=== PATIENT | male | born 1955 | race Caucasian/White ===

== ENCOUNTER 2018-03-26 10:06 | Emergency (ER) | payer OTHER ==
[~2018-03-26] VITALS: Ht 177.8 cm; Wt 77.1 kg
--- NOTE | ~2018-03-26 | CON ---
[address] [address] CONSULTATION Name: ENOCH LAM Room: [facility]#: [id number] Admission: 03/26/18 Attend Phys: Discharge: 03/26/18 Date of : 51 Report #: [id number] THIS REPORT FOR: //name// CC: Bernabe Stokes DATE OF SERVICE: 03/26/2018 HISTORY OF PRESENT ILLNESS: The patient with past medical history significant for hypertension who is presenting with inability to swallow solids or liquids since Wednesday night. The patient reports that he had consumed a large piece of steak along with some potatoes and peas that night and since then has felt that it has been lodged in his esophagus. The patient reports discomfort and pain while attempting to swallow and he has a prior history of gastroesophageal reflux disease. The patient denies any shortness of breath. He is unable to swallow his saliva, liquids or even pills. The patient denies similar episodes in the past. PAST MEDICAL HISTORY: Hypertension. PAST SURGICAL HISTORY: None significant. FAMILY HISTORY: There is no family history of colorectal or esophageal cancer. SOCIAL HISTORY: The patient denies alcohol use. REVIEW OF SYSTEMS: A comprehensive 10-point review of systems is negative except for what is mentioned in the HPI. PHYSICAL EXAMINATION: GENERAL: The patient is alert, awake, oriented x 3. HEENT: Pupils are equal, round, reactive to light and accommodation. Mucous membranes are moist. There is no congestion. LUNGS: Clear to auscultation bilaterally. CARDIOVASCULAR: Rate and rhythm regular. S1, S2 present. ABDOMEN: Soft. There is no distention, guarding or rigidity. EXTREMITIES: Warm, well perfused. There is no edema. SKIN: Warm and dry. LABORATORY DATA: Hemoglobin 16.8, hematocrit 49.0, WBC count 13.2, platelet count 209. Sodium 146, potassium 3.6, chloride 107, bicarbonate 27, BUN 31, creatinine 1.2, total bilirubin 1.7. INR 1. ASSESSMENT AND PLAN: This is a pleasant 62-year-old male with a history of gastroesophageal reflux disease and hypertension, who was presenting with a food bolus impaction since last Wednesday. The patient unable [place] [address] CONSULTATION Name: LAMENOCH Ric Room: [facility]#: [id number] Admission: 03/26/18 Attend Phys: Discharge: 03/26/18 Date of : 51 Report #: [id number] liquids including saliva or water. The patient was given glucagon in the ER and this does not appear to have caused any improvement in his symptoms. We will have to proceed with upper endoscopy and extraction of the food bolus. Further recommendations will be based on the EGD. Thank you for this consult. By: [id number] Martínez MD /deborah
--- NOTE | ~2018-03-26 | PROC ---
[address] [address] PROCEDURE REPORT Name: ENOCH LAM [facility]#: [id number] Admission: 03/26/18 Attend Phys: Discharge: 03/26/18 Date of : 51 Report #: [id number] THIS REPORT FOR: //name// For GI report, please see the provation report in Per[employer] 7 content. By: 1231Medical Records Staff CHARLES /HIRAL
[2018-03-26] MEDS ORDERED: CARDURA XL4 MG PO (10:16)
[2018-03-26] MEDS ORDERED: BYSTOLIC 5 MG5 M1 PO (10:17)
[2018-03-26] MEDS ORDERED: ASPIR 8181 MG PO (10:17)
[2018-03-26 10:33] LABS: HEMOGLOBIN 16.8 gm/dL (14.0-18.0); MCH 30.8 pg (26.0-34.0); MCHC 34.2 g/dL (28.0-37.0); MCV 90.1 fL (80.0-100.0); MPV 8.9 fl. (7.2-11.1); NUCLEATED RBCS 0 /100WBC; PLATELET COUNT* 209 thou/uL (150-400); RBC 5.44 mil/uL (4.50-6.00); RDW-CV 13.3 % (10.5-14.5); WBC 13.2 thou/uL (4.0-11.0)
[2018-03-26 10:48] LABS: CALCIUM 9.2 mg/dL (8.5-10.1); CREATININE 1.2 mg/dL (0.6-1.3); POTASSIUM 3.6 mmol/L (3.5-5.1)
[2018-03-26 10:52] LABS: ALBUMIN 4.3 g/dL (3.4-5.0); TOTAL BILIRUBIN 1.7 mg/dL (<0.1-1.0); TOTAL PROTEIN 8.1 g/dL (6.4-8.2)
[2018-03-26 10:56] LABS: ABSOLUTE EOSINOPHILS 0.1 thou/uL (0.0-0.7); ABSOLUTE LYMPHOCYTES 1.2 thou/uL (0.8-5.3); ABSOLUTE MONOCYTES 0.7 thou/uL (0.0-1.2); ABSOLUTE NEUTROPHILS 11.2 thou/uL (1.6-8.1); PLATELET ESTIMATE ADEQUATE
[2018-03-26 11:03] LABS: APTT 26.4 Seconds (25.0-31.3); PROTIME 10.7 Seconds (9.20-11.50)
[2018-03-26 13:36] VITALS: BP 179/98
--- NOTE | 2018-03-27 13:37 | EKG ---
[place] [address] ELECTROCARDIOGRAM REPORT Name: ENOCH LAM Room: [facility]#: [id number] Admission: 03/26/18 Attend Phys: Discharge: 03/26/18 Date of : 51 Report #: [id number] THIS REPORT FOR: //name// [facility] ED Test Date: 2018-03-26 Test Time: 10:30:53 Pat Name: ENOCH LAM Department: Room: Gender: Correspondent: Rin OGDEN : 1955 Requested By: Vickey Jerome Order Number: [id number] MD: Nitin Thornton Measurements Intervals [place] Rate: 63 P: 76 WV: 166 QRS: -64 QRSD: 155 T: 112 QT: 464 QTc: 476 Interpretive Statements Sinus rhythm Probable left atrial enlargement LBBB Baseline wander in lead(s) V1 No previous ECG available for comparison Electronically Signed On 03-27-2018 13:37:05 [employer]IOR PRODUCT [employer]NALY[employer] by Nitin Thornton [email or web address] <ELECTRONICALLY SIGNED> By: Nitin Thornton MD, [facility] 03/27/18 1337 1030 1030 Nitin Thornton MD, FACC /EPI
--- NOTE | 2018-03-30 14:06 | PATH ---
[address] [address] PATHOLOGY RPT PROCEDURE Name: JARON LAM Room: [facility] Kulwant#: [id number] Admission: 03/26/18 Date of : 51 Discharge: 03/26/18 Report #: [id number] Path Case #: [id number] [facility] Accession Number: [id number] . 01 Material submitted: . ESOPHAGEAL BIOPSY . 01 Clinical history: . Food bolus . 02 Diagnosis: Esophageal biopsy: - Mild chronic esophagitis, typical of reflux. See comment. . (ONOFRE:mm; 03/30/18) [facility]/03/30/2018 . 02 Comment: Eosinophils average between 5-10/high power field, well below that expected with eosinophilic (allergic) esophagitis (greater than 20/high power field on average). . (ONOFRE:mml; 03/30/18) . 02 Electronically signed: . Johan Bond MD, Pathologist NPI- [id number] . 01 Gross description: . Received in formalin labeled "Jaron Lam, esophageal biopsy," are multiple segments of phan soft tissue measuring 0.4 x 0.3 x 0.1 cm in aggregate dimensions. The specimen is filtered and entirely submitted in cassette A1. (TSD; 03/28/2018) TOB/TOB . 02 Pathologist provided ICD-10: K20.9 . 02 CPT . 257912 Specimen Comment: A courtesy copy of this report has been sent to Specimen Comment: [phone], , . Specimen Comment: Report sent to , and Performed at: [address] [id number] MD Nikko Arcos MD Phone: [phone] [address] [address] PATHOLOGY RPT PROCEDURE Name: JARON LAM Room: [facility]#: [id number] Admission: 03/26/18 Date of : 51 Discharge: 03/26/18 Report #: [id number] Path Case #: [id number] Performed at: [address] [id number] MD Johan Bond MD Phone: [phone]
== END 2018-03-26 13:36 | disposition still patient (30) ==
LOC: M.GI 10:06 → M.ERS 10:06
PROVIDERS: Family Medicine
DX: T18.128A Food in esophagus causing other injury, initial encounter (principal); I10 Essential (primary) hypertension; K21.9 Gastro-esophageal reflux disease without esophagitis; Z88.0 Allergy status to penicillin; X58.XXXA Exposure to other specified factors, initial encounter; Y93.89 Activity, other specified; Y92.89 Other specified places as the place of occurrence of the external cause; Y99.8 Other external cause status